=== PATIENT | female | born 1995 | race Caucasian/White ===

== ENCOUNTER 2023-02-15 13:50 | Emergency (ER) | payer MEDICAID ==
[~2023-02-15] VITALS: Ht 162.6 cm; Wt 95.2 kg
[2023-02-15] MEDS ORDERED: acetaminophen 325mg tablet PO ONE (14:05)
[2023-02-15 14:26] LABS: BILIRUBIN,URINE NEGATIVE (Neg); CLARITY,URINE CLOUDY (Clear); COLOR,URINE YELLOW (Yellow); GLUCOSE, URINE NEGATIVE (Neg); KETONES,URINE NEGATIVE (Neg); LEUKOCYTE ESTERASE ,URINE LARGE (Neg); NITRITES, URINE POSITIVE (Neg); OCCULT BLOOD,URINE SMALL (Neg); PH,URINE 7.5 (4.8-8.0); PROTEIN,URINE 100 mg/dl (Neg)
[2023-02-15 14:27] LABS: UA COLLECTION TYPE CLN CATCH MIDSTREAM
[2023-02-15 14:28] LABS: URINE HCG NEGATIVE (NEG)
[2023-02-15 14:31] LABS: BACTERIA,URINE 3+ /HPF (Neg); MUCUS STRANDS NONE SEEN /LPF (Neg); SQUAMOUS EPITHELIAL CELL,UR NONE SEEN /LPF (FEW); WBC CLUMPS,URINE MANY /HPF (NEGATIVE); WBC,URINE TNTC /HPF (0-4)
[2023-02-15 14:33] LABS: MEAN PLATELET VOLUME 7.6 FL (7.4-10.4)
[2023-02-15 14:34] LABS: BASOPHILS % (AUTO) 0.2 % (0-1); EOSINOPHILS # (AUTO) 0.2 X10'3 (0-0.9); EOSINOPHILS % (AUTO) 1.2 % (0-6); HEMATOCRIT 35.6 % (35.0-45.0); HEMOGLOBIN 12.1 g/dl (12.0-16.0); LYMPHOCYTES # (AUTO) 1.2 X10'3 (1.1-4.8); LYMPHOCYTES % (AUTO) 8.2 % (21-51); MEAN CORPUSCULAR HEMOGLOBIN 31.7 PG (27.0-31.0); MEAN CORPUSCULAR HGB CONC 33.9 g/dL (33.0-36.5); MEAN CORPUSCULAR VOLUME 93.6 FL (78-98); MONOCYTES # (AUTO) 1.2 X10'3 (0-0.9); MONOCYTES % (AUTO) 8.3 % (2-12); NEUTROPHILS # (AUTO) 12.2 X10'3 (1.8-7.7); NEUTROPHILS % (AUTO) 82.1 % (42-75); PLATELET COUNT 273 X10'3 (140-440); WHITE BLOOD COUNT 14.9 X10'3 (4.5-11.0)
[2023-02-15 14:50] LABS: ALANINE AMINOTRANSFERASE 21 U/L (12-78); ALBUMIN 2.9 G/DL (3.4-5.0); ALBUMIN/GLOBULIN RATIO 0.7 (1.1-1.5); ALKALINE PHOSPHATASE 74 IU/L (46-116); ANION GAP 7 (8-16); ASPARTATE AMINO TRANSFERASE 17 U/L (10-37); BILIRUBIN,TOTAL 0.4 MG/DL (0.1-1.0); BLOOD UREA NITROGEN 7 MG/DL (7-18); CHLORIDE 101 MMOL/L (99-107); CREATININE 1.16 MG/DL (0.40-0.90); GLUCOSE 124 MG/DL (70-104); LIPASE < 50 U/L (73-393); POTASSIUM 3.7 MMOL/L (3.5-5.1); SODIUM 134 MMOL/L (135-145); TOTAL CARBON DIOXIDE 26.3 MMOL/L (24-32); TOTAL PROTEIN 7.3 G/DL (6.4-8.2); eCRCL 62 ML/MIN; eGFR 56 ML/MIN
[2023-02-15] MEDS ORDERED: CefTRIAXone 2gm/D5W 50ml BAG 50 ML IV ONE (16:00)
[2023-02-15] MEDS ORDERED: ketorolac trometh. 30mg/ml inj. IV ONE (16:05)
[2023-02-15 16:41] LABS: PLATELET ESTIMATE NORMAL; TOTAL CELLS COUNTED 100
[2023-02-15] MEDS ORDERED: ringers solution, lacted 1,000 ML IV ONE (17:00)
[2023-02-15 18:05] VITALS: BP 127/79; PULSE 89; RESP 14; TEMP 98; O2SAT 99
--- NOTE | 2023-02-15 18:22 | NUR ---
Ultrasound in progress.
[2023-02-15] MEDS ORDERED: CEFP200T13 PO (18:43)
[2023-02-15] MEDS ORDERED: ONDA4TAB12 PO (18:43)
[2023-02-15] MEDS ORDERED: HYDR-3965 PO (18:43)
== END 2023-02-15 18:55 | disposition home or self-care (01) ==
LOC: ER 13:50
DX: N10 Acute pyelonephritis (principal); C57.4 Malignant neoplasm of uterine adnexa, unspecified; Z79.899 Other long term (current) drug therapy
CPT/HCPCS: 36415; 74176; 76856; 80053; 81001; 81025; 83690; 85007; 85025; 87088; 87186; 96361; 96365; 96375; 99285; J0696; J1885; J7120; J7121; 87077